=== PATIENT | female | born 1990 | race Caucasian/White ===

== ENCOUNTER 2020-04-29 07:30 | Inpatient (IN) ==
--- NOTE | 2020-04-17 15:40 | Anesthesiology Consultation ---
Date of Service April 17, 2020 Assessment & Plan (1) Encounter for pre-operative examination: COVID Status: As of 2/3 nurse assessment, patient denies travel to endemic area, known exposure/sick contacts, or symptoms of COVID19. Preoperative COVID19 testing to be completed prior to procedure, patient is aware. Chart Review Chart Review: data entry specialist initiated History Surgery Operation Date: 04/29/20 07:30 Proposed Procedures p Section in LD - Phylicia Young MD, FACOG Height/Weight Height: 5 ft 5 in Weight: 84.368 kg Allergies Allergy/AdvReac Type Severity Reaction Status Date / Time No Known Allergies Allergy Verified 04/17/20 09:39 Medications Home Medications Medication Instructions Recorded Confirmed Last Taken prenat.vits,adam,[id number]-zbuz-ytbjf 1 tab PO DAILY 09/18/19 04/17/20 Unknown breast pump #1 ea 02/26/20 04/17/20 Unknown Lactobacillus acidophilus 1,000 mmu cells PO DAILY 04/10/20 04/17/20 Unknown [Probiotic Acidophilus] Past Medical History Medical History Nausea and vomiting after administration of anesthetic agent No known health problems Past Family History Family History Father Dyslipidemia Hypertension Other No family history of adverse response to anesthesia Past Surgical History Surgical History H/O section x1 S/P LASIK surgery [place] teeth removed Social History Smoking Status: Never smoker Do You Dip or Chew Tobacco: No Hx Alcohol Use: No Hx Substance Use: No substance use type: does not use
--- NOTE | 2020-05-03 18:08 | History & Physical Report ---
Date of Service May 03, 2020 Assessment & Plan (1) : Plan for repeat section. Reviewed consent [id number] in office. Patient had been scheduled for 39w , but rescheduled because she tested positive for COVID. Because of hospital policy at the time barring a support person for patients with +COVID test in the past 10 days, patient elected to reschedule her , to allow for a partner. All questions answered. History of Present Illness Chief Complaint: repeat Primary Care Provider: NO PCP 29yo with EDC 05/06/2020. Plans for repeat section. complicated by: COVID + ON 04/23/20 Previous c/s for breech--leaning to c/s (ltcs on report) C/S SCHEDULED FOR 05/[address] Monteiro Flu shot given 12/18/19 SB Low lying Placenta ~rescan at 32 wks, (ok for pt to have rescan at 28wk per provider) Resolved at 32 week U/S Allergies Allergy/AdvReac Type Severity Reaction Status Date / Time No Known Allergies Allergy Verified 05/03/20 11:54 Home Medications Medication Instructions Recorded Confirmed Type prenat.vits,adam,gfr-[id number]-upfed 1 tab PO DAILY 09/18/19 05/03/20 History breast pump #1 ea 02/26/20 05/03/20 Rx Lactobacillus acidophilus 1,000 mmu cells PO DAILY 04/10/20 05/03/20 History [Probiotic Acidophilus] Patient History Medical History (Updated 04/24/20 @ 16:51 by Vicente Young MD) COVID-19 virus detected Positive 04/23/20 - collected at [facility] Nausea and vomiting after administration of anesthetic agent No known health problems Surgical History H/O section x1 S/P LASIK surgery [place] teeth removed Family History Father Dyslipidemia Hypertension Other No family history of adverse response to anesthesia Social History (System 09/28/19 @ 11:18 by Rosa Bennett) Smoking Status: Never smoker Second Hand Exposure: No; Hx Alcohol Use: No Hx Substance Use: No Preferred Language: Syrian Community Arts Officer Required: No Beliefs That Will Affect Care: None marital status: marital status details: zAam Jade (30) [phone] Current Living Situation: Family Current Living Situation Comment: lives with spouse and child, 2 dogs current occupational status: employed current occupation: dental hygenist Feels Safe at Home: Yes Review of Systems All systems reviewed & are unremarkable except as noted in HPI & below Physical Exam Constitutional: WD/WN, vitals as above Respiratory: normal respiratory effort, lungs clear to auscultation no respiratory distress Cardiovascular: Rate/Rhythm: regular rate and regular rhythm Gastrointestinal (Abdomen): Inspection/Auscultation: abdomen normal to inspection Percussion/Palpation: abdomen soft; abdomen nontender Gravid. No s/s chorio or abruption. Skin: no rashes, warm and dry Psychiatric: A+Ox3, euthymic affect Coding Level of Care Code None Diagnoses Z34.90
--- NOTE | 2020-05-06 07:36 | History & Physical Bridge Note ---
Date of Service May 06, 2020 History & Physical Bridge Note I have examined the patient, reviewed the History & Physical and in the interval since the performance of the History & Physical I have noted the following changes of clinical significance: no changes noted
[2020-05-06] MEDS ORDERED: CITRIC ACID/SODIUM CITRATE 15 ML UDC PO SCH (08:00)
[2020-05-06] MEDS ORDERED: LACTATED RINGER'S 1,000 ML IV SCH ×2 (08:00→14:44)
[2020-05-06] MEDS ORDERED: ceFAZolin 2,000 MG in SYRINGE 0 ML IV SCH (08:00)
[2020-05-06] MEDS ORDERED: MoRPHine SULFATE PF 1 MG/ML 10 ML AMP/VIAL ONE (10:38)
[2020-05-06] MEDS ORDERED: diphenhydrAMINE 50 MG/ML VIAL IV PRN ×2 (11:25)
[2020-05-06] MEDS ORDERED: METOCLOPRAMIDE HCL 10 MG in SODIUM CHLORIDE 0.9% 50 ML IV PRN (11:25)
[2020-05-06] MEDS ORDERED: MEPERIDINE HCL 25 MG/ML CARP/VIAL IV PRN (11:25)
[2020-05-06] MEDS ORDERED: NALOXONE HCL 0.4 MG/1 ML VIAL/CARP IV PRN (11:25)
[2020-05-06] MEDS ORDERED: PROMETHAZINE HCL 12.5 MG in SODIUM CHLORIDE 0.9% 50 ML IV PRN (11:25)
[2020-05-06] MEDS ORDERED: ePHEDrine sulfate 50 MG/ML AMP IV PRN (11:25)
[2020-05-06] MEDS ORDERED: diphenhydrAMINE Capsule 25 MG CAP PO PRN (11:25)
[2020-05-06] MEDS ORDERED: MoRPHine SULFATE 2 MG/ML CARP IV PRN (11:25)
[2020-05-06] MEDS ORDERED: HYDROmorphone INJ 1 MG/ML SYRINGE IV PRN (11:25)
[2020-05-06] MEDS ORDERED: NALOXONE HCL 1 MG in SODIUM CHLORIDE 0.9% 1000ML 1,000 ML IV PRN (11:25)
[2020-05-06] MEDS ORDERED: LACTATED RINGER'S 500 ML IV PRN (11:25)
[2020-05-06] MEDS ORDERED: NALOXONE HCL 0.08 MG in SYRINGE 1.8 ML IV PRN (11:25)
[2020-05-06] MEDS ORDERED: MoRPHine SULFATE PF 1 MG/ML 10 ML AMP/VIAL INT SPINAL ONE (11:25)
[2020-05-06] MEDS ORDERED: ONDANSETRON INJ 2 MG/ML 2 ML VIAL IV PRN (11:25)
[2020-05-06] MEDS ORDERED: DC INTRASPINAL MORPHINE SCH (11:30)
[2020-05-06] MEDS ORDERED: SODIUM CHLORIDE 0.9% 1000ML 1,000 ML IV SCH (11:30)
[2020-05-06] MEDS ORDERED: NO NARCOTICS OR SEDATIVES SCH (11:30)
[2020-05-06] MEDS ORDERED: ePHEDrine sulfate 50 MG/ML SYR ONE (11:46)
[2020-05-06] MEDS ORDERED: OXYTOCIN 10 UNITS/ML VIAL ONE (11:46)
[2020-05-06] MEDS ORDERED: PHENYLEPHRINE 100MCG/ML 5ML SYR ONE (11:46)
[2020-05-06] MEDS ORDERED: ONDANSETRON INJ 2 MG/ML 2 ML VIAL ONE (11:47)
--- NOTE | 2020-05-06 12:26 | Operative Report ---
PG Post Operative Report Pre & Post Diagnosis Operation Date: 05/06/20 08:50 Pre-Op Diagnosis: History of Section; Desires Repeat Post-Op Diagnosis: Same; Delivery of a live female child at 1130 ( Main OR 3) I identified the patient and participated in the time-out.: Yes Procedure Operation Date: 05/06/20 08:50 Actual Procedures p Repeat low transverse Section - Josefina Monteiro DO Surgeon Josefina Monteiro DO Laboratory Aide José Miguel Estrada MD Estimated Blood Loss 600 Findings Consistent with Post-Op Diagnosis Viable female . Please see nursery report for Apgars/weight. Specimens placenta, cord blood, cord gas Drains Perez clear yellow Anesthesia Type Spinal Disposition Accompanied Patient To Recovery: No Disposition: L&D Indications 29yo @ 40 0/7, history of with desire for repeat. Description of Procedure The patient was seen in her labor and delivery room, risks benefits and alternatives to surgery were reviewed. Informed consent obtained. Questions were answered. She was taken to the operating room, spinal anesthesia was administered. She was then prepared and draped in the usual sterile fashion in the supine position with a leftward tilt. Timeout was confirmed. A Pfannenstiel skin incision was made with a scalpel, and carried through to the underlying layer of fascia. Fascia was nicked at midline, and this incision was extended bilaterally. The superior aspect of the fascial incision was grasped with Tasha clamps x2, elevated off the underlying rectus abdominis muscles, and dissected sharply and bluntly. In similar fashion, the inferior aspect of the fascial incision was dissected. The rectus abdominis muscles were , and the peritoneum was entered bluntly digitally. This was extended bilaterally. The bladder flap was taken down carefully using Metzenbaum scissors. Using a new scalpel, a low transverse uterine incision was created. Clear amniotic fluid noted. The was delivered from a cephalic presentation. The head delivered, followed by shoulders and body. Spontaneous cry on the field. The cord was doubly clamped and cut, and the was handed off to the waiting inter fold roll cutter. A segment was retained for cord gases. Cord blood was obtained. The placenta was delivered spontaneously intact. The uterus was exteriorized, and cleared of all clots and debris. The hysterotomy incision was reapproximated using 0 Vicryl in a running locked stitch. A second layer of the same suture was used to imbricate the incision. A small right sided extension was repaired in a similar fashion. Posterior uterus was evaluated and normal. The uterus was returned to the abdomen, and gutters were cleared of clots and debris. Excellent hemostasis was observed. Per patient request, the rectus abdominus muscles were reapproximated with [id number] 2-0 Chromic stitches. The fascial incision was reapproximated using 0 Vicryl in a running stitch. The subcutaneous tissue was irrigated, and reapproximated using 2-0 plain gut in a running stitch. The skin was reapproximated using 4-0 Vicryl in a running subcuticular stitch. Steri-Strips and a bandage were applied. The patient tolerated the procedure well, and will be taken to the recovery area in stable and good condition. I attest to the content of the Intraoperative Record and any orders documented therein. Any exceptions are noted below. TRUCK TRAILER MECHANIC Miscellaneous Codes Indication for Procedure Indication for procedure: Desire for repeat
[2020-05-06] MEDS: KETOROLAC 30 MG/ML VIAL IV PRN ×2 (12:31→20:17)
[2020-05-06 13:13] LABS: Base Excess Cord Arterial Bld -2.1 mEq/L (-9-1.8); CO2 Cord Arterial Blood 50 mmHg (39.1-73.5); Cord Venous Blood HCO3 23 mmol/L (18.4-26.8); Cord Venous Blood PCO2 41 mmHg (30.4-57.2); Cord Venous Blood PO2 33 mmHg (14.1-43.3); Cord Venous Blood pH 7.37 (7.20-7.44); HCO3 Cord Arterial Blood 25 mmol/L (19.7-28.5); PO2 Cord Arterial Blood 26 mmHg (4.1-31.7); pH Cord Arterial Blood 7.31 (7.1-7.38)
[2020-05-06 13:14] LABS: Oxygen Sat Cord Arterial Blood < 60.0 % (<60)
[2020-05-06] MEDS ORDERED: DIPHTHERIA/TETANUS/PERTUSSIS 0.5 ML SYR/VIAL IM ONE (14:44)
[2020-05-06] MEDS ORDERED: SENNA 8.6 MG TAB PO PRN (14:44)
[2020-05-06] MEDS ORDERED: SUPERCREAM 0.870% 15 GM JAR EXT PRN (14:44)
[2020-05-06] MEDS ORDERED: MAGNESIUM HYDROXIDE SUSP 30 ML UDC PO PRN (14:44)
[2020-05-06] MEDS ORDERED: BENZOCAINE 20% AER SPR 82.5 GM CAN EXT PRN (14:44)
[2020-05-06] MEDS ORDERED: HYDROCORTISONE ACETATE 25 MG SUPP PR PRN (14:44)
[2020-05-06] MEDS: OXYTOCIN 30 UNITS in LACTATED RINGER'S 1,000 ML IV SCH ×2 (15:21→23:56)
--- NOTE | 2020-05-06 16:00 | Anesthesiology Progress Note ---
Date of Service May 06, 2020 Anesthesia Post Procedure Vital Signs Vital Signs: Temp Pulse Pulse Resp BP BP Pulse Ox 05/06/20 14:50 36.6 C 85 18 111/64 97 05/06/20 14:37 83 111/64 100 05/06/20 14:32 79 97 05/06/20 14:27 36.6 C 79 20 111/56 L 97 05/06/20 14:22 71 97 05/06/20 14:17 71 112/65 98 05/06/20 14:12 72 97 05/06/20 14:07 74 112/63 98 05/06/20 14:02 70 99 05/06/20 13:57 77 20 106/62 98 05/06/20 13:52 71 99 05/06/20 13:47 69 113/62 98 05/06/20 13:42 72 98 05/06/20 13:37 75 121/67 98 05/06/20 13:32 74 98 05/06/20 13:27 36.7 C 66 16 115/58 L 98 05/06/20 13:22 70 98 05/06/20 13:18 70 115/56 L 05/06/20 13:17 71 18 99 05/06/20 13:12 84 98 05/06/20 13:08 80 103/59 L 05/06/20 13:07 81 18 98 05/06/20 13:02 81 99 05/06/20 12:57 78 16 117/63 99 05/06/20 12:52 79 100 05/06/20 12:47 78 16 116/63 100 05/06/20 12:42 77 100 05/06/20 12:37 72 16 111/58 L 100 05/06/20 12:34 75 91 05/06/20 12:32 72 98 05/06/20 12:27 36.7 C 73 16 124/61 100 05/06/20 10:45 18 05/06/20 10:31 107 H 97 05/06/20 10:30 18 05/06/20 10:26 90 97 05/06/20 10:21 99 H 96 05/06/20 10:16 93 H 97 05/06/20 10:11 85 98 05/06/20 10:06 90 97 05/06/20 10:01 83 97 05/06/20 10:00 18 03/01/21 09:56 88 97 05/06/20 09:51 85 97 05/06/20 09:46 81 97 05/06/20 09:41 87 97 05/06/20 09:36 83 97 05/06/20 09:31 84 99 05/06/20 09:30 20 05/06/20 09:26 84 98 05/06/20 09:21 82 97 05/06/20 09:16 78 98 05/06/20 09:11 83 99 05/06/20 09:01 79 97 05/06/20 09:00 20 05/06/20 08:56 86 98 05/06/20 08:51 76 98 05/06/20 08:46 83 98 05/06/20 08:41 87 99 05/06/20 08:36 86 98 05/06/20 08:31 85 98 05/06/20 08:30 20 05/06/20 08:26 87 97 05/06/20 08:21 87 99 05/06/20 08:16 87 98 05/06/20 08:09 88 97 05/06/20 08:04 90 98 05/06/20 08:00 18 05/06/20 07:30 18 05/06/20 07:20 36.7 C 18 05/06/20 07:11 90 130/77 Pain Intensity Lower Abdomen: Pain Intensity: 2 Transfer of Care Handoff Completed per policy Notes Mental Status: alert / awake / arousable and participated in evaluation Patient Amnestic to Procedure: Yes Nausea / Vomiting: adequately controlled Pain: adequately controlled Airway Patency, RR, SpO2: stable & adequate BP & HR: stable & adequate Hydration State: stable & adequate Neuraxial Anesthesia: was administered and sensory block is resolving Anesthetic Complications: no major complications apparent
[2020-05-06] MEDS: SIMETHICONE 80 MG CHEW PO SCH ×2 (20:17→20:18)
[2020-05-06] MEDS: DOCUSATE SODIUM 100 MG CAP PO SCH (20:17)
[2020-05-07] MEDS: KETOROLAC 30 MG/ML VIAL IV PRN (04:13)
[2020-05-07] MEDS ORDERED: diphenhydrAMINE 50 MG/ML VIAL IV PRN (05:27)
[2020-05-07] MEDS ORDERED: PROMETHAZINE HCL 25 MG in SODIUM CHLORIDE 0.9% 50 ML IV PRN (05:27)
[2020-05-07] MEDS ORDERED: ONDANSETRON INJ 2 MG/ML 2 ML VIAL IV PRN (05:27)
[2020-05-07] MEDS ORDERED: KETOROLAC 30 MG/ML VIAL IV PRN (05:27)
[2020-05-07] MEDS ORDERED: diphenhydrAMINE Capsule 25 MG CAP PO PRN (05:27)
--- NOTE | 2020-05-07 06:08 | Obstetrical Progress Note ---
Date of Service May 07, 2020 Assessment & Plan (1) : S/p LTCS Day 1 - Feels well today. Eating well, voiding well, ambulating well. - Pain well-controlled with ibuprofen 600mg Q4H PRN. - Vital signs reviewed and WNL. - Hemoglobin reviewed. [] (today). - Blood Type: O+, antibody negative, GBS positive (s/p intrapartum abx), Rubella Immune, COVID-19 positive - Continue routine post-op care: encourage ambulation, monitor and control pain with Motrin PRN, continue regular OB diet, monitor lochia - Encourage breast feeding. - After discharge, will have 6-wk follow-up with Dr. Monteiro Admission and Anticipated Discharge Date Admission Date: May 06, 2020 Supervising Physician Co-Signing Physician Notes Resident Physician Supervision Note: I was present with Dr. Roper during the history and exam. I discussed the case with the resident and agree with the findings and plan as documented in the note. Any exceptions or clarifications are listed here: POD#1 doing well. No concerns. Ambulate, increase diet, PO hydrate today. Anticipate DC home tomorrow. Documented By: Josefina Monteiro, DO Subjective HPI Josefina Jade is a 29 y/o female who is POD #1 following elective repeat delivery at 40 0/7 weeks. She reports feeling well overall this morning. mild abdominal cramping and mild-moderate pain well managed on analgesics. Has not spontaneously voided yet, but mann was removed less than an hour before I saw her. Tolerating fluids overnight without difficulty. Patient has been able to ambulate some. passing gas and no bowel movement. Has persistent lochia with some improvement this morning. Currently . Review of Systems Review of Systems: ROS Denies fever or chills. Denies shortness of breath or cough. Denies chest pain. Denies breast pain. Denies dysuria. Denies leg pain or leg swelling. Denies headache or changes in vision. Physical Exam Physical Exam: PE General: Alert, oriented. No acute distress. Cardiac: Regular rate and rhythm. No murmurs. Respiratory: Clear to auscultation bilaterally a/p, no wheezes/rales/rhonchi. No increased work of breathing. Symmetrical chest rise. No respiratory distress. Abdomen: Soft, nontender, nondistended. Bowel sounds present. Uterus: Uterine fundus firm, palpable at umbilicus. Surgical scar clean and healing well. Lower Extremities: No lower extremity edema or swelling. No deep calf pain. Radha's negative bilaterally. Results & Data ([facility]) Vital Signs (Past 12 Hours) Vital Signs Temp Pulse Pulse Resp BP Pulse Ox 05/07/20 05:15 18 98 05/07/20 04:30 16 97 05/07/20 03:30 16 93 05/07/20 03:00 36.9 C 85 84 18 106/69 96 05/07/20 02:30 18 97 05/07/20 01:30 18 94 05/07/20 00:30 16 97 05/07/20 00:00 36.7 C 74 71 16 118/79 96 05/06/20 23:30 16 96 05/06/20 22:18 16 97 05/06/20 21:30 16 95 05/06/20 20:45 36.9 C 77 18 112/67 100 05/06/20 19:45 18 100 05/06/20 18:45 18 100 Resident Activity Tracking Resident Involvement: Resident Care Provided Care Provided: Adult Hospital Medicine
[2020-05-07 07:06] LABS: Basophils # (auto) 0.02 K/uL (0-0.2); Basophils % (auto) 0.2 %; Eosinophils # (auto) 0.07 K/uL (0-0.5); Eosinophils % (auto) 0.7 %; Hematocrit (blood only) 32.9 % (37-47); Hemoglobin 11.2 g/dL (12.0-16.0); Immature Granulocytes # (auto) 0.12 K/uL (0.00-0.02); Immature Granulocytes % (auto) 1.1 %; Lymphocytes # (auto) 1.83 K/uL (1.2-3.4); Lymphocytes % (auto) 17.2 %; Mean Corpuscular Hemoglobin 32.2 pg (25-34); Mean Corpuscular Volume 94.5 fL (80-100); Mean Platelet Volume 9.9 fL (7.4-10.4); Monocytes # (auto) 0.68 K/uL (0.11-0.59); Monocytes % (auto) 6.4 %; Neutrophils # (auto) 7.89 K/uL (1.4-6.5); Neutrophils % (auto) 74.4 %; Platelet Count 158 K/uL (130-400); RDW Coefficient of Variation 12.9 % (11.5-14.5); RDW Standard Deviation 44.7 fL (36.4-46.3); Red Blood Count 3.48 M/uL (4.2-5.4); White Blood Count 10.61 K/uL (4.8-10.8)
[2020-05-07] MEDS: DOCUSATE SODIUM 100 MG CAP PO SCH ×2 (08:39→20:55)
[2020-05-07] MEDS: PRENATAL VITAMIN 1 TAB PO SCH (08:39)
[2020-05-07] MEDS: FERROUS SULFATE 325 MG TAB PO SCH (08:39)
[2020-05-07] MEDS: SIMETHICONE 80 MG CHEW PO SCH ×4 (08:40→20:55)
[2020-05-07] MEDS: IBUPROFEN 600 MG TAB PO PRN ×2 (12:11→16:10)
[2020-05-07] MEDS: oxyCODONE/ACETAMINOPHEN 5mg/325mg TAB PO PRN ×2 (12:12→16:10)
[2020-05-07] MEDS ORDERED: bisacodyL 5 MG TABEC PO SCH (20:00)
[2020-05-08] MEDS: oxyCODONE/ACETAMINOPHEN 5mg/325mg TAB PO PRN ×2 (00:02→06:47)
[2020-05-08] MEDS: IBUPROFEN 600 MG TAB PO PRN ×2 (00:02→06:47)
--- NOTE | 2020-05-08 05:29 | Obstetrical Progress Note ---
Date of Service May 08, 2020 Assessment & Plan (1) : S/p LTCS Day 1 - Feels well today. Eating well, voiding well, ambulating well. - Pain well-controlled with ibuprofen 600mg Q4H PRN. - Vital signs reviewed and WNL. - Hemoglobin reviewed. 11.2 (yesterday). - Blood Type: O+, antibody negative, GBS positive (s/p intrapartum abx), Rubella Immune, COVID-19 positive - Continue routine post-op care: encourage ambulation, monitor and control pain with Motrin PRN, continue regular OB diet, monitor lochia - Encourage breast feeding. - Pt counselled on discharge instructions - After discharge, will have 6-wk follow-up with Dr. Monteiro Admission and Anticipated Discharge Date Admission Date: May 06, 2020 Supervising Physician Co-Signing Physician Notes Resident Physician Supervision Note: I interviewed and examined the patient. Discussed with Dr. Roper and agree with findings and plan as documented in the note. Any exceptions or clarifications are listed here: Patient doing well. She is PPD#2. she is meeting all criteria for d/c and desires to go home. INstructions reviewed. Documented By: Za Cervantes MD, FACOG Subjective HPI Josefina Jade is a 29 y/o female who is POD #2 following elective repeat delivery at 40 0/7 weeks. She reports feeling well overall this morning. mild abdominal cramping and mild-moderate pain well managed on analgesics. Voiding spontaneously. Tolerating fluids overnight without difficulty. Patient has been able to ambulate some. passing gas and no bowel movement. Has persistent lochia with some improvement this morning. Currently . Review of Systems Review of Systems: ROS Denies fever or chills. Denies shortness of breath or cough. Denies chest pain. Denies breast pain. Denies dysuria. Denies leg pain or leg swelling. Denies headache or changes in vision. Physical Exam Physical Exam: PE General: Alert, oriented. No acute distress. Cardiac: Regular rate and rhythm. No murmurs. Respiratory: Clear to auscultation bilaterally a/p, no wheezes/rales/rhonchi. No increased work of breathing. Symmetrical chest rise. No respiratory distress. Abdomen: Soft, nontender, nondistended. Bowel sounds present. Uterus: Uterine fundus firm, palpable at umbilicus. Surgical scar clean and healing well. Lower Extremities: No lower extremity edema or swelling. No deep calf pain. Radha's negative bilaterally. Results & Data ([facility]) Vital Signs (Past 12 Hours) Vital Signs Temp Pulse Resp BP 05/07/20 20:00 36.6 C 77 18 109/73 Resident Activity Tracking Resident Involvement: Resident Care Provided Care Provided: Adult Hospital Medicine
[2020-05-08 06:37] LABS: Hematocrit (blood only) 31.8 % (37-47); Hemoglobin 10.5 g/dL (12.0-16.0)
[2020-05-08] MEDS: SIMETHICONE 80 MG CHEW PO SCH (08:34)
[2020-05-08] MEDS: FERROUS SULFATE 325 MG TAB PO SCH (08:34)
[2020-05-08] MEDS: PRENATAL VITAMIN 1 TAB PO SCH (08:34)
[2020-05-08] MEDS: DOCUSATE SODIUM 100 MG CAP PO SCH (08:34)
[2020-05-08] MEDS ORDERED: bisacodyL 10 MG SUPP PR PRN (12:21)
--- NOTE | 2020-05-17 12:51 | Discharge Summary ---
Date of Service May 17, 2020 Admission HPI Per Admitting Provider 29yo with EDC 05/06/2020. Plans for repeat section. complicated by: COVID + ON 04/23/20 Previous c/s for breech--leaning to c/s (ltcs on report) C/S SCHEDULED FOR 05/[address] Monteiro Flu shot given 12/18/19 SB Low lying Placenta ~rescan at 32 wks, (ok for pt to have rescan at 28wk per provider) Resolved at 32 week U/S Discharge Data Procedures Performed Operation Date: 05/06/20 08:50 Actual Procedures p Section - Josefina Monteiro, Hospital Course (1) Supervision of normal intrauterine in multigravida: Admitted for recovery after routine repeat section. Routine recovery, discharged home. Followup 6w PP. Coding Level of Care Code None Diagnoses Supervision of normal intrauterine in multigravida Z34.80
== END 2020-05-08 11:13 | disposition home or self-care (01) | DRG 788 ==
LOC: EDSTATUS 07:30 → 4S1 05-06 06:52 → 4S2 05-06 14:50